=== PATIENT | female | born 1940 | race Caucasian/White ===

== ENCOUNTER 2020-08-28 13:34 | Emergency (ER) | payer MEDICARE | END 2020-08-28 17:01 | disposition home or self-care (01) | LOC: CSHERS 13:34 | DX: S82.832A Other fracture of upper and lower end of left fibula, initial encounter for closed fracture (principal); W19.XXXA Unspecified fall, initial encounter ==

== ENCOUNTER 2022-01-02 11:25 | Outpatient (CLI) | payer MEDICARE | END 2022-01-02 11:26 | disposition home or self-care (01) | LOC: CSHMAMMO 11:25 | PROVIDERS: ATTEND Family Medicine | DX: Z12.31 Encounter for screening mammogram for malignant neoplasm of breast (principal) | CPT/HCPCS: 77063; 77067 ==

== ENCOUNTER 2023-01-11 13:19 | Emergency (ER) | payer MEDICARE ==
[2023-01-11] MEDS ORDERED: Lidocaine 1% w/Epinephrine 1:200K 30 ML VIAL ONE (13:54)
== END 2023-01-11 16:00 | disposition home or self-care (01) ==
LOC: CSHERS 13:19
DX: S01.81XA Laceration without foreign body of other part of head, initial encounter (principal); S80.01XA Contusion of right knee, initial encounter; S09.90XA Unspecified injury of head, initial encounter; I25.2 Old myocardial infarction; I10 Essential (primary) hypertension; W19.XXXA Unspecified fall, initial encounter
CPT/HCPCS: 12013; 70450; 72125

== ENCOUNTER 2023-03-26 10:13 | Outpatient (CLI) | payer MEDICARE | END 2023-03-26 10:14 | disposition home or self-care (01) | LOC: CSHMAMMO 10:13 | PROVIDERS: ATTEND Physician Assistant | DX: Z12.31 Encounter for screening mammogram for malignant neoplasm of breast (principal) | CPT/HCPCS: 77063; 77067 ==